=== PATIENT | male | born 1995 | race Caucasian/White ===

== ENCOUNTER 2021-07-04 00:29 | Emergency (ER) | payer OTHER ==
[2021-07-04] MEDS ORDERED: CYCLOBENZAPRINE10 MG PO (15:16)
== END 2021-07-04 01:15 | disposition left against medical advice (07) ==
LOC: ER1 00:29
DX: Z53.21 Procedure and treatment not carried out due to patient leaving prior to being seen by health care provider (principal)

== ENCOUNTER 2021-07-04 12:06 | Emergency (ER) | payer OTHER ==
[2021-07-04 13:19] LABS: HEMOGLOBIN 16.2 gm/dl (14.0-17.5); RED BLOOD COUNT 5.56 M/UL (4.20-5.50); WHITE BLOOD COUNT 6.2 K/UL (4.5-11.0)
[2021-07-04 13:39] LABS: BUN/CREATININE RATIO 15 (0-10)
[2021-07-04] MEDS ORDERED: CYCLOBENZAPRINE10 MG PO (15:16)
== END 2021-07-04 15:30 | disposition home or self-care (01) ==
LOC: ER1 12:06
PROVIDERS: Physician Assistant
DX: S39.012A Strain of muscle, fascia and tendon of lower back, initial encounter (principal); S30.1XXA Contusion of abdominal wall, initial encounter; F17.290 Nicotine dependence, other tobacco product, uncomplicated; V49.9XXA Car occupant (driver) (passenger) injured in unspecified traffic accident, initial encounter
CPT/HCPCS: 72072; 80053; 81001; 85025; 99284; Q9967